=== PATIENT | male | born 1965 | race Caucasian/White ===

== ENCOUNTER 2024-12-11 04:38 | Emergency (ER) | payer BC ==
--- OUTSIDE RECORDS SUMMARY | 2024-12-11 04:40 | XMS REPORT | Continuity of Care Document ---
Author Name Unknown Address [address] [facility] [place] [address] [facility] Address [address] [facility] [place] [address] Care Team Providers Care Vice President Lending Name Role Phone Nicolas Gusman Attending Clinician Unavailable Payers Payer Name Policy Type Policy Number Effective Date Expirati on Date Source [place] [address] [id number] 2023 00:00:00 [facility] Problems Condition Name Condition Details Condition Category Status Onset Date Resolution Date Last Treatment Date Treating Clinician Comments Source [id number] Other obesity due to excess calories Problem [facility] [id number] Mixed hyperlipid emia Problem [facility] [id number] Anemia, unspecifie d type Problem [facility] [id number] Acquired hypothyroi dism Problem [facility] [id number] Essential hypertensi on Problem [facility] [id number] Body mass index [BMI] 33.0-33.9, adult Problem [facility] Social History Social Habit Start Date Stop Date Quantity Comments Source History of Tobacco Use [facility] Sex Assigned At [facility] Smoking Status Start Date Stop Date Source Never Smoker [facility] Medications Ordered Medication Name Filled Medication Name Start Date Stop Date Current Medication? Ordering Clinician Indication Dosage Frequency Signature (SIG) Comments Components Source Vitamin C 1000 MG Vitamin C 1000 MG No 1{table t} QD Vitamin C 1000 MG Doxazosin Mesylate 1 MG Doxazosin Mesylate 1 MG No 1{table t} BID Doxazosin Mesylate 1 MG Krill Oil Krill Oil No Krill Oil Levothyroxi ne Sodium 50 MCG Levothyroxi ne Sodium 50 MCG No QD Levothyrox ine Sodium 50 MCG Atorvastati n Calcium 20 MG Atorvastati n Calcium 20 MG No 1{table t_at_be dtime} QD Atorvastat in Calcium 20 MG Centrum Silver 50+Men - Centrum Silver 50+Men - No Centrum Silver 50+Men - amLODIPine Besy-Benaze pril HCl 10-40 MG amLODIPine Besy-Benaze pril HCl 10-40 MG No 1{capsu le} QD amLODIPine Besy-Benaz epril HCl 10-40 MG Carvedilol 6.25 MG Carvedilol 6.25 MG No 1{table t_with_ food} BID Carvedilol 6.25 MG Pantoprazol e Sodium 40 MG Pantoprazol e Sodium 40 MG No QD Pantoprazo le Sodium 40 MG Immunizations Ordered Immunization Name Filled Immunization Name Date Status Comments Source Boostrix (Tdap) Boostrix (Tdap) Unknown Completed [facility] Vital Signs Vital Name Observation Time Observation Value Comments S ource blood pressure systolic 2024-09-25 08:30:00 112 mm[Hg] [facility] blood pressure diastolic 2024-09-25 08:30:00 70 mm[Hg] [facility] height 2024-09-25 08:30:00 69 [in_i] Commo n [facility] weight 2024-09-25 08:30:00 224 [lb_av] Comm on [facility] temperature 2024-09-25 08:30:00 97.9 [degF] Com mon [facility] bmi 2024-09-25 08:30:00 33.08 kg/m2 Comm on [facility] oximetry 2024-09-25 08:30:00 98 % Commo n [facility] height 2024-04-05 09:00:00 69 [in_i] Commo n [facility] weight 2024-04-05 09:00:00 234.4 [lb_av] Co on [facility] temperature 2024-04-05 09:00:00 97.3 [degF] Com [facility] bmi 2024-04-05 09:00:00 34.61 kg/m2 Comm on [facility] oximetry 2024-04-05 09:00:00 97 % Commo n [facility] respiratory rate 2024-04-05 09:00:00 16 /min Common [facility] blood pressure systolic 2024-04-05 09:00:00 138 mm[Hg] Common [facility] blood pressure diastolic 2024-04-05 09:00:00 76 mm[Hg] Common [facility] height 2023-12-28 09:00:00 69 [in_i] Commo n [facility] weight 2023-12-28 09:00:00 227.8 [lb_av] Co [facility] temperature 2023-12-28 09:00:00 97.6 [degF] Com [facility] bmi 2023-12-28 09:00:00 33.64 kg/m2 Comm on [facility] oximetry 2023-12-28 09:00:00 98 % Commo n [facility] blood pressure systolic 2023-12-28 09:00:00 142 mm[Hg] Common [facility] blood pressure diastolic 2023-12-28 09:00:00 87 mm[Hg] Common [facility] height 2023-12-28 09:00:00 69 [in_i] Commo n [facility] weight 2023-12-28 09:00:00 227.8 [lb_av] Co [facility] temperature 2023-12-28 09:00:00 97.6 [degF] Com [facility] bmi 2023-12-28 09:00:00 33.64 kg/m2 Comm on [facility] oximetry 2023-12-28 09:00:00 98 % Commo n [facility] blood pressure systolic 2023-12-28 09:00:00 142 mm[Hg] [facility] blood pressure diastolic 2023-12-28 09:00:00 87 mm[Hg] [facility] Encounters Start Date/Time End Date/Time Encounter Type Admission Type Attending Clinicians Care Facility Care Department Encounter ID Source 2024-04-03 14:53:00 Outpatient Nicolas Gusman STLMLC STL[facility] [id number] [facility] 2023-12-28 08:37:01 Outpatient Nicolas Gusman STLMLC STL[facility] [id number] [facility] 2024-10-13 00:00:00 2024-10-13 00:00:00 (WEB) STLMLC STL[facility]C [id number] [facility] 2024-09-26 00:00:00 2024-09-26 00:00:00 (WEB) STLMLC STL[facility]C [id number] [facility] 2024-09-25 00:00:00 2024-09-25 00:00:00 (TEL) STLMLC STLMLC [id number] [facility] 2024-09-25 00:00:00 2024-09-25 00:00:00 (WEB) STLMLC STLMLC [id number] [facility] 2024-09-25 00:00:00 2024-09-25 00:00:00 OFFICE VISIT ESTAB PT LEVEL 4 STLMLC STLMLC [id number] [facility] 2024-09-24 00:00:00 2024-09-24 00:00:00 (TEL) STLMLC STLMLC [id number] [facility] 2024-07-18 00:00:00 2024-07-18 00:00:00 (WEB) STLMLC STLMLC [id number] [facility] 2024-05-20 00:00:00 2024-05-20 00:00:00 (WEB) STLMLC STLMLC [id number] [facility] 2024-04-05 00:00:00 2024-04-05 00:00:00 PREV VISIT EST AGE 40-64 STLMLC STLMLC [id number] [facility] 2024-03-13 00:00:00 2024-03-13 00:00:00 (TEL) STLMLC STLMLC [id number] [facility] 2024-03-04 00:00:00 2024-03-04 00:00:00 (WEB) STLMLC STLMLC [id number] [facility] 2024-01-04 00:00:00 2024-01-04 00:00:00 (WEB) STLMLC STLMLC [id number] [facility] 2023-12-28 00:00:00 2023-12-28 00:00:00 OFFICE VISIT NEW PT LEVEL 4 STLMLC STLMLC [id number] [facility] Results Test Description Test Time Test Comments Results Result Co mments Source
[2024-12-11] MEDS ORDERED: LORazepam 2 MG/ML VIAL ONE (05:11)
[2024-12-11] MEDS ORDERED: NA CHLORIDE 0.9% 1,000 ML ONE (05:12)
[2024-12-11 05:27] LABS: Absolute Lymphocytes (CBC) 1.7 K/uL (0.7-4.9); Hematocrit 40.0 % (39.6-49.0); Hemoglobin 13.4 g/dL (13.6-17.9); MCH 28.2 pg (27.0-35.0); MCHC 33.5 g/dL (32.0-36.0); MCV 84.1 fL (80-100); MPV 10.1 fL (7.6-11.3); Nucleated RBC Absolute Count 0.0 (0-0); Nucleated Red Blood Cells % 0.0 % (0-0); RBC Red Blood Cell Count 4.75 M/uL (4.33-5.43); White Blood Count 5.90 thou/uL (4.3-10.9)
[2024-12-11 05:39] LABS: PT Prothrombin Time 10.7 SECONDS (10-13.0); PTT, Activated Partial Thromb 34.8 SECONDS (27.2-37.4); Protime INR 0.95
[2024-12-11 05:45] LABS: ALT/SGPT 43.0 U/L (16-61); AST/SGOT 47.0 U/L (15-37); Albumin 3.8 g/dL (3.4-5.0); Albumin/Globulin Ratio 1.2 (1.1-1.8); Alkaline Phosphatase 56.0 U/L (45-117); Anion Gap 5.9 mEq/L (5.0-15.0); BUN Blood Urea Nitrogen 15.0 mg/dL (7-18); Globulin 3.3 g/dL (2.3-3.5); Glucose Level 108.0 mg/dL (74-106); Lipase 36.0 U/L (13-75); Potassium 3.9 mEq/L (3.5-5.1)
[2024-12-11 06:03] LABS: Urine Microscopic Reflex YN NO UMIC
--- NOTE | 2024-12-11 06:11 | EDPHYS ---
Physician Documentation [facility] Name: Blayne Shelley Age: 59 yrs Sex: Male : 1965 Arrival Date: 12/11/2024 Time: 04:38 Bed 4 Private MD: Nicolas Gusman ED Physician Jovan Orlando HPI: 12/11 04:55 This 59 yrs old Male presents to ER via Unassigned with complaints of Penile Problem. cp 04:55 The patient presents with erection. cp 04:55 Onset: The symptoms/episode began/occurred Patient reports noticed erection at about cp 2300 this past evening before going to bed and awoke this morning with erection. Takes Cialis 5 mg daily. Associated signs and symptoms: Pertinent negatives: abdominal pain, fever, vomiting. Historical: - Allergies: 04:59 No Known Allergies; lg3 - Home Meds: 04:59 Unable to obtain [Active]; lg3 - PMHx: 04:59 Hypertensive disorder; Hypercholesterolemia; gastric ulcers; lg3 - PSHx: 04:59 None; lg3 - Immunization history:: Adult Immunizations up to date. - Infectious Disease History:: Denies. - Social history:: Smoking status: Patient denies any tobacco usage or history of. Patient/guardian denies using alcohol, street drugs. ROS: 05:00 : Positive for erection, Negative for urinary symptoms, flank pain, cp 05:00 Eyes: Negative for injury, pain, redness, and discharge, cp 05:00 Constitutional: Negative for body aches, chills, fever, poor PO intake, 05:00 Cardiovascular: Negative for chest pain, 05:00 Respiratory: Negative for cough, shortness of breath, wheezing, 05:00 Abdomen/GI: Negative for abdominal pain, vomiting, diarrhea, constipation, 05:00 Back: Negative for pain at rest, pain with movement, 05:00 Neuro: Negative for altered mental status, dizziness, headache, weakness, 05:00 All other systems are negative, Exam: 05:05 Head/Face: Normocephalic, atraumatic. cp 05:05 Constitutional: The patient appears in no acute distress, alert, awake, non-diaphoretic, non-toxic, well developed, well nourished, anxious, 05:05 Eyes: Periorbital structures: appear normal, Conjunctiva: normal, no exudate, no injection, Sclera: no appreciated abnormality, Lids and lashes: appear normal, bilaterally, 05:05 ENT: External ear(s): are unremarkable, Nose: is normal, Mouth: Lips: moist, Oral mucosa: moist, Posterior pharynx: Airway: no evidence of obstruction, patent, 05:05 Chest/axilla: Inspection: normal, 05:05 Cardiovascular: Rate: normal, Rhythm: regular, Edema: is not appreciated, JVD: is not appreciated, 05:05 Respiratory: the patient does not display signs of respiratory distress, Respirations: normal, no use of accessory muscles, no retractions, labored breathing, is not present, Breath sounds: are clear throughout, no decreased breath sounds, no stridor, no wheezing, 05:05 Abdomen/GI: Inspection: abdomen appears normal, Palpation: abdomen is soft and non-tender, in all quadrants, 05:05 : Male external genitalia: erected penis, 05:05 Neuro: Orientation: to person, place \T\ time. Mentation: is normal, Motor: moves all fours, strength is normal, Sensation: is normal, Vital Signs: 04:57 BP 156 / 84; Pulse 67; Resp 17 S; Temp 97.6(O); Pulse Ox 99% on R/A; Pain 0/10; lg3 06:22 BP 141 / 88; Pulse 61; Resp 18 S; Pulse Ox 99% on R/A; lg3 04:57 Pain Scale: Adult lg3 MDM: 04:46 Medical Screening Exam initiated cp 05:00 Differential diagnosis: UTI, prostatitis, urethritis. 06:10 Data reviewed: vital signs, nurses notes, lab test result(s), and as a result, I will cp discharge patient. 06:10 I considered the following discharge prescriptions or medication management in the emergency department Medications were administered in the Emergency Department. See MAR. Care significantly affected by the following chronic conditions: Hypertension, Obesity. Counseling: I had a detailed discussion with the patient and/or guardian regarding the historical points, exam findings, and any diagnostic results supporting the discharge/admit diagnosis, lab results, the need for outpatient follow up, a urologist, to return to the emergency department if symptoms worsen or persist or if there are any questions or concerns that arise at home. Response to treatment: the patient's symptoms have resolved after treatment, and as a result, I will discharge patient. ED course: VSS. Stop Cialis and f/u with urology. 12/11 04:51 Order name: CBC with Diff; Complete Time: 05:59 cp 12/11 05:59 Interpretation: Normal except: HGB 13.4; PLT 129; MN% 12.6. cp 12/11 04:51 Order name: CMP; Complete Time: 05:59 cp 12/11 06:00 Interpretation: Normal except: CL 109; GLUC 108; AST 47. cp 12/11 04:51 Order name: Lipase; Complete Time: 05:59 cp 12/11 04:55 Order name: PT-INR; Complete Time: 05:59 cp 12/11 06:00 Interpretation: Reviewed. cp 12/11 04:55 Order name: Ptt, Activated; Complete Time: 05:59 cp 12/11 05:04 Order name: UA Rfx Alan Cult if indicated; Complete Time: 06:06 cp 12/11 06:07 Interpretation: Reviewed. cp 12/11 04:51 Order name: IV Saline Lock; Complete Time: 05:17 cp 12/11 04:51 Order name: Labs collected and sent; Complete Time: 05:17 cp Administered Medications: 05:17 Drug: NS 0.9% IV 1000 ml IV at 500 ml/hr Per protocol; to be given as a bolus over 120 lg3 minutes Route: IV; Rate: 500 ml/hr; Site: right antecubital; 06:23 Follow up: Response: No adverse reaction; IV Status: Completed infusion; IV Intake: lg3 1000ml 05:17 Drug: Ativan IVP 1 mg IVP once Route: IVP; Site: right antecubital; lg3 06:22 Follow up: Response: No adverse reaction; Marked relief of symptoms lg3 Disposition: 13:34 Co-signature as Attending Physician, Jovan Orlando MD I agree with the assessment and hasmukh plan of care. Chart complete. Disposition Summary: 12/11/24 06:10 Discharge Ordered Notes: Location: Home cp Problem: new cp Symptoms: are resolved cp Condition: Stable cp Diagnosis - Priapism, drug-induced - resolved(12/11/24 06:11) cp Followup: cp - With: Private Physician - When: primary urologist - Reason: Recheck today's complaints Discharge Instructions: - Discharge Summary Sheet cp - Priapism cp Forms: - Medication Reconciliation Form cp - Antibiotic Education cp - Prescription Opioid Use cp - Patient Portal Instructions cp - Leadership Thank You Letter cp Signatures: Dispatcher [employer] EDJovan Anderson MD MD cha Page, Corey, PA-C PA-C cp Able, Lacie RN RN lg3 Corrections: (The following items were deleted from the chart) 04:51 04:51 CBC+H.LAB.BRZ ordered. EDMS EDMS 04:51 04:51 COMPREHENSIVE METABOLIC PANEL+C.LAB.BRZ ordered. EDMS EDMS 04:51 04:51 LIPASE+C.LAB.BRZ ordered. EDMS EDMS 05:04 05:04 UA Rfx Alan Cult if indicated+U.LAB.BRZ ordered. EDMS EDMS 06:11 06:10 Priapism, drug-induced cp cp
--- NOTE | 2024-12-11 06:11 | ER ---
Nurse's Notes [facility] Name: Blayne Shelley Age: 59 yrs Sex: Male : 1965 Arrival Date: 12/11/2024 Time: 04:38 Bed 4 Private MD: Nicolas Gusman Diagnosis: Priapism, [id number] Presentation: 12/11 04:40 Chief complaint: Patient states: HAS HAD AN ERECTION FOR 5 HOURS. TOOK A CIALIS jj7 YESTERDAY MORNING AND A FLOMAX YESTERDAY EVENING. WENT TO SLEEP AROUND 11P WITH AN ERECTION WOKE UP ABOUT 4 AND THE ERECTION WAS STILL THERE. Coronavirus screen: At this time, the client does not indicate any symptoms associated with coronavirus-19. Ebola Screen: No symptoms or risks identified at this time. Risk Assessment: Do you want to hurt yourself or someone else? Patient reports no desire to harm self or others. Onset of symptoms was December 10, 2024 at 23:00. 04:40 Method Of Arrival: Ambulatory jj7 04:40 Acuity: GERALDO 3 jj7 04:40 Initial Sepsis Screen: Does the patient meet any 2 criteria? No. Patient's initial lg3 sepsis screen is negative. Does the patient have a suspected source of infection? No. Patient's initial sepsis screen is negative. Triage Assessment: 04:40 General: Appears in no apparent distress. comfortable, Behavior is calm, cooperative, jj7 appropriate for age. Pain: Denies pain. EENT: No deficits noted. Neuro: No deficits noted. Cardiovascular: No deficits noted. Respiratory: No deficits noted. GI: No deficits noted. : Reports ERECTION LAST 5 HOURS. Derm: No deficits noted. Musculoskeletal: No deficits noted. Historical: - Allergies: 04:59 No Known Allergies; lg3 - Home Meds: 04:59 Unable to obtain [Active]; lg3 - PMHx: 04:59 Hypertensive disorder; Hypercholesterolemia; gastric ulcers; lg3 - PSHx: 04:59 None; lg3 - Immunization history:: Adult Immunizations up to date. - Infectious Disease History:: Denies. - Social history:: Smoking status: Patient denies any tobacco usage or history of. Patient/guardian denies using alcohol, street drugs. Screenin:59 [facility] ED Fall Risk Assessment (Adult) History of falling in the last 3 months, lg3 including since admission No falls in past 3 months (0 pts) Confusion or Disorientation No (0 pts) Intoxicated or Sedated No (0 pts) Impaired Gait No (0 pts) Mobility Assist Device Used No (0 pt) Altered Elimination No (0 pt) Score/Fall Risk Level 0 - 2 = Low Risk Oriented to surroundings, Maintained a safe environment, Educated pt \T\ family on fall prevention, incl call for assistance when getting out of bed, Assessed \T\ reinforced patient's understanding of fall precautions. Abuse screen: Denies threats or abuse. Denies injuries from another. Nutritional screening: No deficits noted. Tuberculosis screening: No symptoms or risk factors identified. Assessment: 04:58 General: Appears in no apparent distress. comfortable, Behavior is calm, cooperative. lg3 Pain: Denies pain. Neuro: No deficits noted. Palacio Agitation-Sedation Scale (RASS): 0 - Alert and Calm Level of Consciousness is awake, alert, obeys commands, Oriented to person, place, time, situation. Cardiovascular: No deficits noted. Denies chest pain, shortness of breath, Capillary refill < 3 seconds Clubbing of nail beds is absent JVD is absent Patient's skin is warm and dry. Respiratory: No deficits noted. Airway is patent Respiratory effort is even, unlabored, Respiratory pattern is regular, symmetrical. GI: No deficits noted. No signs and/or symptoms were reported involving the gastrointestinal system. Abdomen is round non-distended. : Reports constant erection Denies pain. EENT: No deficits noted. No signs and/or symptoms were reported regarding the EENT system. Derm: No deficits noted. No signs and/or symptoms reported regarding the dermatologic system. Skin is intact, is healthy with good turgor, Skin is dry, Skin is normal, Skin temperature is warm. Musculoskeletal: No deficits noted. No signs and/or symptoms reported regarding the musculoskeletal system. Circulation, motion, and sensation intact. Range of motion: intact in all extremities. 06:22 Reassessment: Patient appears in no apparent distress at this time. No changes from lg3 previously documented assessment. Patient and/or family updated on plan of care and expected duration. Pain level reassessed. Patient is alert, oriented x 3, equal unlabored respirations, skin warm/dry/pink. Patient denies pain at this time. Patient states feeling better. Patient states symptoms have improved. Vital Signs: 04:57 BP 156 / 84; Pulse 67; Resp 17 S; Temp 97.6(O); Pulse Ox 99% on R/A; Pain 0/10; lg3 06:22 BP 141 / 88; Pulse 61; Resp 18 S; Pulse Ox 99% on R/A; lg3 04:57 Pain Scale: Adult lg3 ED Course: 04:40 Arm band placed on right wrist. Patient placed in an exam room, on a stretcher. jj7 04:42 Patient arrived in ED. gm2 04:43 Nicolas Gusman DO is Private Physician. gm2 04:43 Jovan Nichols PA-C is PHCP. cp 04:43 Jovan Orlando MD is Attending Physician. cp 04:45 Guillermo Mendoza RN is Primary Nurse. jj7 04:59 Patient has correct armband on for positive identification. Placed in gown. Bed in low lg3 position. Call light in reach. Side rails up X 1. Client placed on continuous cardiac and pulse oximetry monitoring. NIBP monitoring applied. Door closed. Noise minimized. Warm blanket given. Pillow given. Family accompanied patient. 05:01 Triage completed. jj7 05:17 Initial lab(s) drawn, by ED staff, sent to lab. Inserted saline lock: 20 gauge in right lg3 antecubital area, using aseptic technique. Blood collected. Flushed with 10 mL NS. 05:17 Ptt, Activated Sent. lg3 05:17 PT-INR Sent. lg3 05:17 CBC with Diff Sent. lg3 05:17 CMP Sent. lg3 05:17 Lipase Sent. lg3 05:48 Urine collected: clean catch specimen, clear. lg3 06:23 No provider procedures requiring assistance completed. IV discontinued, intact, lg3 bleeding controlled, No redness/swelling at site. Pressure dressing applied. Administered Medications: 05:17 Drug: NS 0.9% IV 1000 ml IV at 500 ml/hr Per protocol; to be given as a bolus over 120 lg3 minutes Route: IV; Rate: 500 ml/hr; Site: right antecubital; 06:23 Follow up: Response: No adverse reaction; IV Status: Completed infusion; IV Intake: lg3 1000ml 05:17 Drug: Ativan IVP 1 mg IVP once Route: IVP; Site: right antecubital; lg3 06:22 Follow up: Response: No adverse reaction; Marked relief of symptoms lg3 Medication: 04:59 VIS not applicable for this client. lg3 Intake: 06:23 IV: 1000ml; Total: 1000ml. lg3 Outcome: 06:10 Discharge ordered by MD. lee 06:23 Discharged to home ambulatory, with family, lg3 06:23 Condition: stable 06:23 Discharge instructions given to patient, Instructed on discharge instructions, follow up and referral plans. Demonstrated understanding of instructions, follow-up care, :23 Patient left the ED. lg3 Signatures: Jovan Nichols PA-Travis PAArianne Capone cp RN RN lg3 Guillermo Mendoza RN RN jj7 Emily Colunga gm2
[2024-12-11 09:55] VITALS: TEMP 97.6; O2SAT 99
[2024-12-11 09:57] VITALS: BP 141/88
== END 2024-12-11 06:23 | disposition home or self-care (01) ==
LOC: ER 04:38
DX: N48.33 Priapism, drug-induced (principal)
CPT/HCPCS: 85025; 36415; 85610; 85730; 81003; 83690; 80053; J7030